=== PATIENT | male | born 1960 | race Two or more races ===

== ENCOUNTER 2019-04-12 11:35 | Emergency (ER) | payer BC ==
[2019-04-12 11:46] VITALS: BMI 25.9
--- NOTE | 2019-04-12 12:19 | PDOC ---
History of Present Illness - General Chief Complaint: Injury Stated Complaint: INJURY Time Seen by Provider: 04/12/19 12:07 - History of Present Illness Initial Comments: 04/12/19 12:15 Medical history significant for diabetes was working on a car when a spring hit him in the left eye. Past History - Suicide/Smoking/Psychosocial Hx Smoking History: Never smoked Information on smoking cessation initiated: No Hx Alcohol Use: No Drug/Substance Use Hx: No Review of Systems - Review of Systems HEENTM: Yes: See HPI, Blurred Vision, Recent change in vision ABD/GI: No: Nausea, Vomiting Neurological: Yes: Other (no LOC no indication of intracranial involvement ). No: Headache *Physical Exam - Vital Signs Last Vital Signs Temp Pulse Resp BP Pulse Ox 98.6 F 81 16 148/94 98 04/12/19 11:43 04/12/19 11:43 04/12/19 11:43 04/12/19 11:43 04/12/19 11:43 - Physical Exam Comments: 04/12/19 12:17 HEAD: NC/there is a facial laceration on the left side of the nose where the nose meets the cheek EYES: Conjuntiva clear on the right left conjunctiva is injected there is a large corneal abrasion extending from the middle of the left eye laterally to the the 3 o'clock position seen without floor seen MS: Full ROM in all joints without edema NEUROLOGIC: No gross sensory or motor deficits, NVID SKIN: Normal color and temperature no lesions or rashes ED Treatment Course - RADIOLOGY Radiology Studies Ordered: Category Date Time Status FACIAL BONES CT W/O CONTRAST [CT] Stat CT Scan 04/12/19 12:11 Ordered *DC/Admit/Observation/Transfer Diagnosis at time of Disposition: Left eye trauma, Facial laceration - Referrals - Patient Instructions - Post Discharge Activity
[2019-04-12] MEDS ORDERED: DIPHTH,PERTUSS(ACELL),TET 0.5 ML DISP.SYRIN IM ONE ×2 (13:05→13:29)
[2019-04-12] MEDS ORDERED: AMPICILLIN NA/SULBACTAM NA 3 GM in SODIUM CHLORIDE 100 ML IVPB ONE (13:09)
[2019-04-12] MEDS ORDERED: morphine SULFATE 4 MG/ML VIAL IVPUSH ONE (13:09)
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
[2019-04-12] MEDS ORDERED: morphine SULFATE 4 MG/ML VIAL ONE (13:28)
--- NOTE | 2019-04-12 13:28 | PDOC ---
Attending Attestation - Resident Resident Name: Jas Grubbs - ED Attending Attestation I have performed the following: I have examined & evaluated the patient, The case was reviewed & discussed with the resident, I agree w/resident's findings & plan - HPI HPI: 04/12/19 13:22 59y/o M p/w facial injury. Pt was working on a car, shock springs were being compressed then decompressed rapidly, striking his L face. no LOC, no other injuries. c/o L facial pain without loss of vision. unknown last tetanus. - Physicial Exam PE: 04/12/19 13:24 vss abrasion over medial L eyebrow, laceration over L maxilla with slow oozing blood. +sts with ttp. periorbital edema, no L eye proptosis, globe appears intact with intact visual acuity and ROM, no diplopia on upward gaze. oropharynx clear, neck supple without midline spine ttp - Medical Decision Making 04/12/19 13:26 59-year-old male with blunt force injury to the left face, sustaining laceration. Globe appears to be intact with intact visual acuity, likely facial fracture. CT maxillofacial bones and orbits Pain control, antibiotics Disposition accordingly with ENT/OMFS consultation.
[2019-04-12 13:37] LABS: BASO % 0.9 % (0-2.0); EOS % 0.2 % (0-4.5); HEMATOCRIT 45.5 % (35.4-49); LYMPH % 23.2 % (8-40); MEAN CELL VOLUME 84.9 fl (80-96); MEAN PLT VOLUME 9.5 fl (7.5-11.1); MONO % 6.6 % (3.8-10.2); NEUT % 69.1 % (42.8-82.8); PLATELET COUNT 329 K/MM3 (134-434); RBC 5.36 M/mm3 (4.00-5.60); RDW 13.5 % (11.9-15.9); WHITE BLOOD COUNT 7.8 K/mm3 (4.0-10.0)
[2019-04-12 13:58] LABS: INR 1.09 (0.83-1.09); PROTHROMBIN TIME (PATIENT) 12.9 SEC (9.7-13.0)
[2019-04-12 14:01] LABS: ACTIVATED PTT 36.2 SECONDS (25.2-36.5)
[2019-04-12 14:12] LABS: ALBUMIN 4.3 g/dl (3.4-5.0); BILIRUBIN,TOTAL 0.4 mg/dL (0.2-1); BLOOD UREA NITROGEN 12.6 mg/dL (7-18); CALCIUM 9.3 mg/dL (8.5-10.1); CREATININE 1.1 mg/dL (0.55-1.3); POTASSIUM 4.9 mmol/L (3.5-5.1)
[2019-04-12 14:24] VITALS: BP 140/90; PULSE 82; TEMP 98.4
== END 2019-04-12 14:37 | disposition short-term general hospital (02) ==
LOC: JERFT 11:35 → JER 11:35
PROC: 3E0234Z Introduction of Serum, Toxoid and Vaccine into Muscle, Percutaneous Approach (ICD-10-PCS; principal; 2019-04-12)
DX: S02.92XB Unspecified fracture of facial bones, initial encounter for open fracture (principal); S01.81XA Laceration without foreign body of other part of head, initial encounter; S05.92XA Unspecified injury of left eye and orbit, initial encounter; W20.8XXA Other cause of strike by thrown, projected or falling object, initial encounter; Y93.89 Activity, other specified; Y92.59 Other trade areas as the place of occurrence of the external cause; Y99.0 Civilian activity done for income or pay
CPT/HCPCS: 36415; 70486-TC; 80053; 85025; 85610; 85730; 86850; 86900; 86901; 90471; 90715; 96374; 99285-25

== ENCOUNTER 2022-02-05 09:36 | Emergency (ER) | payer BC ==
[2022-02-05 09:45] VITALS: BP 150/76; PULSE 71; TEMP 98.2; BMI 25.2
[2022-02-05] MEDS ORDERED: ACETAMINOPHEN 325 MG TABLET (FP) PO ONE (11:21)
[2022-02-05] MEDS ORDERED: ACETAMINOPHEN 325 MG TABLET (FP) ONE (12:18)
== END 2022-02-05 12:19 | disposition home or self-care (01) ==
LOC: JER 09:36
DX: M79.10 Myalgia, unspecified site (principal)
CPT/HCPCS: 70450-TC; 99284-25

== ENCOUNTER 2022-05-23 11:26 | Emergency (ER) | payer BC ==
[2022-05-23 11:32] VITALS: TEMP 97.8; BMI 26.1
[2022-05-23] MEDS ORDERED: KETOROLAC TROMETHAMINE 30 MG/1 ML VIAL IVPUSH ONE (12:58)
[2022-05-23] MEDS ORDERED: SODIUM CHLORIDE 0.9% 500 ML INFUS.BAG IV ONE (12:58)
[2022-05-23] MEDS ORDERED: KETOROLAC TROMETHAMINE 30 MG/1 ML VIAL ONE (13:49)
[2022-05-23 14:43] LABS: BASO % 0.9 % (0-2.0); EOS % 0.7 % (0-4.5); HEMATOCRIT 45.9 % (35.4-49); HEMOGLOBIN 15.3 GM/dL (11.7-16.9); LYMPH % 55.8 % (8-40); MCH 28.1 pg (25.7-33.7); MCHC 33.4 g/dl (32.0-35.9); MEAN CELL VOLUME 83.9 fl (80-96); MEAN PLT VOLUME 8.9 fl (7.5-11.1); MONO % 13.5 % (3.8-10.2); NEUT % 29.1 % (42.8-82.8); PLATELET COUNT 317 10^3/uL (134-434); RBC 5.47 M/mm3 (4.00-5.60); RDW 14.2 % (11.9-15.9); WHITE BLOOD COUNT 4.6 K/mm3 (4.0-10.0)
[2022-05-23 15:11] LABS: ALBUMIN 3.9 g/dl (3.4-5.0); BLOOD UREA NITROGEN 14.2 mg/dL (7-18); CALCIUM 9.4 mg/dL (8.5-10.1)
[2022-05-23 15:14] LABS: CREATININE 1.1 mg/dL (0.55-1.3)
[2022-05-23 15:16] LABS: BILIRUBIN,TOTAL 0.4 mg/dL (0.2-1); TOT PROT 7.7 g/dl (6.4-8.2)
[2022-05-23 17:03] LABS: PH,URINE 5.5 (5.0-8.0); URINE APPEARANCE CLEAR; URINE BILIRUBIN NEGATIVE (NEGATIVE); URINE COLOR YELLOW; URINE GLUCOSE (UA) 3+ (NEGATIVE); URINE KETONE NEGATIVE (NEGATIVE); URINE LEUK ESTERASE NEGATIVE (NEGATIVE); URINE NITRITE NEGATIVE (NEGATIVE); URINE PROTEIN NEGATIVE (NEGATIVE); URINE UROBILINOGEN 0.2 mg/dL (0.2-1.0)
[2022-05-23 17:42] VITALS: BP 116/71; PULSE 76; RESP 20
== END 2022-05-23 17:49 | disposition home or self-care (01) ==
LOC: JER 11:26
PROC: 3E0333Z Introduction of Anti-inflammatory into Peripheral Vein, Percutaneous Approach (ICD-10-PCS; principal; 2022-05-23)
DX: M54.6 Pain in thoracic spine (principal)
CPT/HCPCS: 36415; 74176-TC; 80053; 81003; 83690; 85025; 87086; 99285-25